=== PATIENT | female | born 1965 | race Asian ===

== ENCOUNTER → 2022-09-10 08:45 | Outpatient (BNVA) | payer OTHER, SELFPAY | PROVIDERS: Visit Provider Internal Medicine | DX: Z13.89 Encounter for screening for other disorder (principal) ==

== ENCOUNTER 2022-09-29 15:01 | Outpatient (REF) | payer OTHER, SELFPAY ==
--- NOTE | ~2022-09-29 | MR_ITS ---
EXAMINATION: MR ANKLE WITHOUT CONTRAST, RIGHT CLINICAL INFORMATION: Pain in right ankle COMPARISON: None. TECHNIQUE: MRI of the right ankle performed without contrast in a high field MRI scanner. FINDINGS: SUBCUTANEOUS SOFT TISSUES: Minimal generalized edema circumferentially about the ankle. MUSCLES/TENDONS: Normal. PLANTAR FASCIA: Normal. NEUROVASCULAR STRUCTURES/TARSAL TUNNEL: Normal. LIGAMENTS: Normal. BONE/CARTILAGE: There is ill-defined and generalized bone marrow edema noted throughout talar dome and extending into the talar neck. No fracture line. Articular cartilage of the talocrural joint is normal. Subtalar joints are normal. Talonavicular joint are normal. Remaining bone and joints are unremarkable. MR/MR ankle RT wo con IMPRESSION: 1. Bone marrow edema pattern in the talar dome and neck compatible with bone contusion or stress reaction. No fracture line detected. 2. Mild generalized edema in the subcutaneous soft tissues.
== END 2022-09-29 15:02 | disposition home or self-care (01) ==
LOC: HO.MRI 15:01
PROVIDERS: PCP Internal Medicine; Visit Provider Internal Medicine
DX: M25.571 Pain in right ankle and joints of right foot (principal)
CPT/HCPCS: 73721

== ENCOUNTER 2022-10-19 07:34 | Outpatient (REF) | payer OTHER, SELFPAY ==
[2022-10-19 07:45] LABS: MANUAL DIFF FLAG NO
[2022-10-19 07:58] LABS: Basophils Percent Auto 0.5 % (0-2); Eosinophils Absolute Auto 0.1 X10*3/uL (0.0-0.4); Eosinophils Percent Auto 1.6 % (0-4); Hematocrit 39.3 % (37.0-47.0); Hemoglobin 13.1 g/dl (12.0-16.0); Imm Gran Abs Auto 0.02 X10*3/uL (0.00-0.03); Imm Gran Pct Auto 0.3 % (0.0-0.4); Lymphocytes Percent Auto 31.9 % (20-40); Mean Corpuscular HGB Conc 33.3 g/dl (31.0-35.0); Mean Corpuscular Hemoglobin 30.5 pg (27.0-33.0); Mean Corpuscular Volume 91.6 fL (80.0-98.0); Mean Platelet Volume 11.8 fL (9.4-12.3); Monocytes Absolute Auto 0.7 X10*3/uL (0.1-1.2); Monocytes Percent Auto 10.4 % (2-11); Neutrophils Absolute Auto 3.5 x10*3/uL (2.0-8.3); Neutrophils Percent Auto 55.3 % (45-73); Platelet Count 199 X10*3/uL (160-400); Red Blood Count 4.29 X10*6/uL (4.20-5.50); Red Cell Distribution Width 12.5 % (11.0-16.0); White Blood Count 6.2 X10*3/uL (4.8-10.8)
[2022-10-19 08:27] LABS: Alanine Aminotransferase 19 U/L (0-31); Albumin Level 4.3 g/dL (3.5-5.0); Alkaline Phosphatase 57 U/L (39-117); Anion Gap 14 (12-20); Aspartate Amino Transferase 21 U/L (5-31); Bilirubin Total 0.8 mg/dL (0.0-1.0); Blood Urea Nitrogen 13 mg/dL (9-16); Calcium 9.4 mg/dL (8.4-10.2); Carbon Dioxide 28 mmol/L (22-29); Chloride 105 mmol/L (96-108); Cholesterol 170 mg/dL; Estimated Glomerular Filt Rate > 60; Glucose Random 91 mg/dL (60-115); HDL Cholesterol 72 mg/dL; LDL Cholesterol Calculated 79 mg/dl; Potassium 4.4 mmol/L (3.3-5.1); Sodium 143 mmol/L (135-145); Total Protein 6.7 g/dL (6.5-8.0); Triglycerides 95 mg/dL
[2022-10-19 08:44] LABS: Thyroid Stimulating Hormone 2.08 uIU/mL (0.32-4.0); Vitamin D 25-OH Total 45.2 ng/mL (>30)
== END 2022-10-19 07:35 | disposition home or self-care (01) ==
LOC: HO.LAB 07:34
PROVIDERS: PCP Internal Medicine; Visit Provider Internal Medicine
DX: Z00.00 Encounter for general adult medical examination without abnormal findings (principal); E55.9 Vitamin D deficiency, unspecified; E78.5 Hyperlipidemia, unspecified; M85.80 Other specified disorders of bone density and structure, unspecified site
CPT/HCPCS: 36415; 80053; 80061; 82306; 84443; 85025

== ENCOUNTER 2022-10-27 13:38 | Outpatient (REF) | payer OTHER, SELFPAY ==
--- NOTE | ~2022-10-27 | MM_ITS ---
EXAMINATION: BONE DENSITOMETRY CLINICAL INDICATION: Menopause. COMPARISON: This is the patient's baseline examination. TECHNIQUE: Using a [employer] DXA System (software version: 13.1) manufactured by [employer], dual-energy x-ray absorptiometry was performed of the lumbar spine and left hip. The images are of good technical quality. Summary results are attached. FINDINGS: AP SPINE L1-L4: BMD 0.872 g/cm2, Z-score -1.2, T-score -2.6, osteoporosis. LEFT FEMUR, NECK: BMD 0.760 g/cm2, Z-score -0.7, T-score -2.0, osteopenia. LEFT FEMUR, TOTAL: BMD 0.831 g/cm2, Z-score -0.4, T-score -1.4, osteopenia. IDENTIFIED RISK FACTORS: Menopause. HISTORY OF FRACTURE: None listed. MEDICATIONS: Calcium, vitamin D. MM/XR DEXA axial skeleton IMPRESSION: 1. DIAGNOSIS: Osteoporosis based on the lowest T-score value of -2.6 in the lumbar spine applying World Health Organization criteria. 2. 10-YEAR FRACTURE RISK PREDICTION, FRAX: According to the guidelines, FRAX calculation should only be performed on patients in the osteopenia bone density category. Therefore, FRAX was not performed on this patient. 3. Treatment Recommendations: NOF guidelines recommend consideration for treatment in postmenopausal women and men age 50 and older presenting with the following: -A hip or vertebral (clinical or morphometric) fracture. -T-score less than or equal to -2.5 at the femoral neck or spine after appropriate evaluation to exclude secondary causes. -Low bone mass at the hip or spine and a 10-year fracture probability by FRAX of greater than or equal to 3% for hip fracture or greater than or equal to 20% for major osteoporotic fracture based on the [place] adapted WHO algorithm. 4. Other Recommendations: All treatment decisions require clinical judgment and consideration of individual patient factors, including patient preferences, comorbidities, previous drug use, risk factors not captured in the FRAX model (e.g. frailty, falls, vitamin D deficiency, increased bone turnover, interval significant decline in bone density) and possible under or overestimation of fracture risk by FRAX. Additional medical evaluation for secondary cause of low bone mineral density may be appropriate. FUTURE SCAN RECOMMENDATION: People with diagnosed cases of osteoporosis or at high risk for fracture should have regular bone mineral density tests. For patients eligible for Medicare, routine testing is allowed once every 2 years. The testing frequency can be increased to one year for patients who have rapidly progressing disease, those who are receiving or discontinuing medical therapy to restore bone mass, or have additional risk factors.
[2022-10-27 16:56] LABS: Erythrocyte Sedimentation Rate 7 MM/HR (0-20)
[2022-10-27 17:18] LABS: C Reactive Protein < 0.04 mg/dL (< or = 0.50)
== END 2022-10-27 13:39 | disposition home or self-care (01) ==
LOC: HO.MAMMO 13:38
PROVIDERS: PCP Internal Medicine; Visit Provider Internal Medicine
DX: Z13.820 Encounter for screening for osteoporosis (principal); Z78.0 Asymptomatic menopausal state; M25.579 Pain in unspecified ankle and joints of unspecified foot
CPT/HCPCS: 36415; 77080; 85652; 86140

== ENCOUNTER 2022-11-09 16:25 | Outpatient (REF) | payer OTHER, SELFPAY ==
[2022-11-09 17:46] LABS: Phosphorus 4.6 mg/dL (2.7-4.5)
[2022-11-09 18:19] LABS: Vitamin B12 618 pg/mL (200-900)
[2022-11-10 19:43] LABS: PTHI 39 pg/mL (16-77)
== END 2022-11-09 16:26 | disposition home or self-care (01) ==
LOC: HO.LAB 16:25
PROVIDERS: PCP Internal Medicine; Visit Provider Internal Medicine
DX: G62.9 Polyneuropathy, unspecified (principal); M81.0 Age-related osteoporosis without current pathological fracture
CPT/HCPCS: 36415; 82607; 82746; 83970; 84100

== ENCOUNTER 2022-11-11 | Outpatient (REF) | payer OTHER, SELFPAY ==
[2022-11-19 06:09] LABS: N-Telopeptide 58 (see note); NTXCreaRU 67 mg/dL (20-275)
== END 2022-11-11 00:01 | disposition home or self-care (01) ==
LOC: HO.LNP
PROVIDERS: Visit Provider Internal Medicine
DX: M81.0 Age-related osteoporosis without current pathological fracture (principal)
CPT/HCPCS: 82523

== ENCOUNTER 2022-12-17 07:18 | Outpatient (REF) | payer OTHER, SELFPAY ==
--- NOTE | ~2022-12-17 | MR_ITS ---
EXAMINATION: MRI OF THE LEFT ANKLE WITHOUT CONTRAST CLINICAL INFORMATION: Pain in left ankle. COMPARISON: No prior imaging of the left ankle. MRI of the right ankle September 2022. TECHNIQUE: MRI of the left ankle without contrast on a high field MRI scanner. FINDINGS: Bone/cartilage: There is patchy bone marrow edema noted throughout the distal tibia, portions of the calcaneus, cuboid, portions of the talus. The articular surfaces are intact. Ligaments: Intact. 2. Neurovascular structures/tarsal tunnel: Normal. 3. Muscles/tendons: Normal. 4. Plantar fascia: Normal. 5. Subcutaneous soft tissues: Minimal edema noted along the medial lateral aspect of the ankle. MR/MR ankle LT wo con IMPRESSION: 1. Patchy bone marrow edema noted throughout the distal tibia, calcaneus, cuboid, and talus. This is nonspecific. This could be related to stress reaction or bone contusion. A similar pattern of bone marrow edema is noted in the right ankle MRI exam dated September 2022. 2. The pattern of bone marrow edema is nonspecific and can also be seen in the setting of complex regional pain syndrome.
== END 2022-12-17 07:19 | disposition home or self-care (01) ==
LOC: HO.MRI 07:18
PROVIDERS: PCP Internal Medicine; Visit Provider Internal Medicine
DX: M25.572 Pain in left ankle and joints of left foot (principal)
CPT/HCPCS: 73721

== ENCOUNTER 2023-02-22 13:24 | Outpatient (REF) | payer OTHER, SELFPAY | END 2023-02-22 13:25 | disposition home or self-care (01) | LOC: HO.MAMMO 13:24 | PROVIDERS: PCP Internal Medicine; Visit Provider Internal Medicine | DX: Z12.31 Encounter for screening mammogram for malignant neoplasm of breast (principal) | CPT/HCPCS: 77063; 77067 ==

== ENCOUNTER → 2023-02-22 13:30 | Outpatient (BNV) | payer OTHER, SELFPAY | PROVIDERS: PCP Internal Medicine; Visit Provider Radiology Diagnostic Radiology | DX: Z12.31 Encounter for screening mammogram for malignant neoplasm of breast (principal) | CPT/HCPCS: 77063; 77067 ==

== ENCOUNTER 2023-02-25 15:00 | Outpatient (RCR) | payer OTHER, SELFPAY | END 2023-03-18 07:27 | disposition home or self-care (01) | LOC: HO.PT 15:00 | PROVIDERS: PCP Internal Medicine; Visit Provider Internal Medicine | DX: M25.571 Pain in right ankle and joints of right foot (principal) | CPT/HCPCS: 97033; 97035; 97110; 97112; 97140; 97161; 97530 ==

== ENCOUNTER → 2023-03-12 14:38 | Outpatient (BNVA) | payer OTHER, SELFPAY | PROVIDERS: PCP Internal Medicine; Visit Provider Physician Assistant | DX: Z13.89 Encounter for screening for other disorder (principal) | CPT/HCPCS: 99204 ==

== ENCOUNTER 2023-08-05 13:24 | Outpatient (REF) | payer OTHER, SELFPAY ==
--- NOTE | ~2023-08-05 | XR_ITS ---
EXAMINATION: XR HAND, LEFT CLINICAL INFORMATION: Pain. COMPARISON: None available. TECHNIQUE: PA, lateral, and oblique views of the left hand. FINDINGS: Bony alignment and mineralization are normal. There is a relatively neutral ulnar variance. There is marked osteoarthritic change of the fifth distal interphalangeal joint, with a central erosion noted. There is some narrowing noted of the fourth and fifth distal interphalangeal joints and of the second, fourth and fifth proximal interphalangeal joints. There is slight peripheral osteophyte formation of the third proximal interphalangeal joint. No fracture or dislocation is seen. The proximal and distal carpal rows are intact. No focal soft tissue swelling, gas or foreign body is seen. XR/XR hand LT min 3V IMPRESSION: There are degenerative changes of the left hand, most pronounced of the second distal interphalangeal joint, which shows a central erosion. This raises the possibility of erosive osteomyelitis, psoriasis, Kaylan's syndrome or rheumatoid arthritis. Please correlate clinically. No fracture or dislocation is seen.
== END 2023-08-05 13:25 | disposition home or self-care (01) ==
LOC: HO.HOSX 13:24
PROVIDERS: Visit Provider Physician Assistant
DX: M79.642 Pain in left hand (principal); L72.0 Epidermal cyst
CPT/HCPCS: 73130

== ENCOUNTER 2023-08-05 14:33 | Outpatient (AMB) | payer OTHER, SELFPAY ==
--- NOTE | 2023-08-05 15:01 | MHC.OFFVIS ---
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 Patient reports lump has been present for about 3 weeks. Denies injury. She will have discomfort with applying pressure to lump. 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 She reports she has a lump on her left ring finger for about 2 weeks. She states she has no pain but she does c/o discomfort with applying pressure to the lump. [facility] History (Updated 08/05/23 @ 15:48 by Sherri Portillo PA-C) Hypercholesteremia Social History (Updated 08/05/23 @ 15:04 by Janelle Blue [facility]) Patient Tobacco Use Status: Never used Tobacco Review of Systems Const All systems reviewed & are unremarkable except as noted in HPI and below Physical Exam Vital Signs: BMI result Body Mass Index 21.9 Const General: cooperative, healthy appearing, comfortable, no acute distress, well developed and alert Orientation/consciousness: patient oriented x3 HEENT Head: Yes normal to inspection, Yes normocephalic and Yes atraumatic Eyes General: appearance normal, both eyes and all related structures Resp Effort & Inspection: normal respiratory effort and able to speak in complete sentences Cardio Rate: regular rate Peripheral pulses: Peripheral pulses 2+ throughout GI Palpation (GI): Soft to palpation Skin Lesions: no lesions Rashes: no rashes Neuro General: patient oriented x3 Extrem Other: Left ring finger: Normal to inspection. Full flexion and extension of the digits. She has a pea sized mobile nodule along the volar aspect of the middle phalanx which is not tender to palpation. No catching or locking of the digits. NVI. Assessment & Plan Assessment & Plan (1) Epidermoid cyst of finger of left hand: Code(s): L72.0 - Epidermal cyst Plan She did bring with her an US image of her finger that shows a pea sized cyst just above the flexor tendon. There is no association between the tendon and cyst. We discussed options which include modifications of activities and avoiding activities which may irritate the area vs aspiration which I think is too small, along with surgical intervention which she is not interested in as the cyst has been present for only 2 weeks. She will wait to proceed and look if the cyst increases in size and causes her concerns. If she returns for a surgical intervention, we will move forward with a excisional biopsy of the left ring finger cyst local anesthesia with Dr. Smiley. We discussed benefits and alternatives which include but are not limited to recurrence of cyst, infection, nerve & tissue damage to the surrounding structures and stiffness. She does understand all this and will contact us accordingly moving forward. Orders: Orders XR hand LT min 3V Today M79.642 - Pain in left hand Patient Instructions: Scribed for Sherri Portillo PA-C, by Paddy Gonzalez senior medical transcriptionist, on 08/05/2023 at 3:30 PM OSVALDO. Sherri Johnson PA-C, have personally reviewed and agree with the information entered by the scribe. Coding Level of Care Code New Pt Level 4 (08236) Diagnoses Epidermoid cyst of finger of left hand L72.0
[2023-08-05 15:02] VITALS: BMI 21.9
== END 2023-08-05 15:30 | disposition home or self-care (01) ==
PROVIDERS: PCP Internal Medicine; Visit Provider Physician Assistant
DX: L72.0 Epidermal cyst (principal)
CPT/HCPCS: 99203

== ENCOUNTER 2023-11-12 09:12 | Outpatient (REF) | payer OTHER, SELFPAY ==
[2023-11-12 10:05] LABS: Cholesterol 184 mg/dL (<200); HDL Cholesterol 76 mg/dL (>40); LDL Cholesterol Calculated 92 mg/dL (<100); Triglycerides 84 mg/dL (<150)
[2023-11-12 10:20] LABS: Vitamin D 25-OH Total 46.7 ng/mL (>30)
[2023-11-14 10:28] LABS: Anti Nuclear Antibody Screen NEGATIVE (NEGATIVE)
[2023-11-17 12:48] LABS: Collagen Type I C-Telopeptide 93 pg/mL (see note)
== END 2023-11-12 09:13 | disposition home or self-care (01) ==
LOC: HO.LAB 09:12
PROVIDERS: PCP Internal Medicine; Visit Provider Internal Medicine
DX: R31.29 Other microscopic hematuria (principal)
CPT/HCPCS: 36415; 80061; 82306; 82523; 86038

== ENCOUNTER 2023-12-16 15:51 | Outpatient (REF) | payer OTHER, SELFPAY ==
--- NOTE | ~2023-12-16 | MR_ITS ---
EXAMINATION: MR ANKLE WITHOUT CONTRAST, RIGHT CLINICAL INFORMATION: Right ankle pain and swelling. Osteoporosis without pathologic fracture. COMPARISON: Right ankle MRI dated 09/29/2022. TECHNIQUE: MRI of the ankle was performed using routine sequences on a high-field scanner. FINDINGS: BONE AND ARTICULAR CARTILAGE: Resolution of previously seen talar marrow edema. No acute fracture or dislocation. The ankle mortise is maintained. Anterior articular cartilage loss at the posterior subtalar joint with minimal subchondral cystic change, new when compared to the prior examination. Otherwise, intact articular cartilage. No talar osteochondral lesion. ACHILLES TENDON: Intact. OTHER TENDONS: Intact. LIGAMENTS: No evidence of acute ligament injury. JOINT FLUID AND SOFT TISSUES: No significant joint effusion. No soft tissue mass or fluid collection. PLANTAR FASCIA: Intact. SINUS TARSI AND TARSAL TUNNEL: Patent. MR/MR ankle RT wo con IMPRESSION: 1. Resolution of previously seen talar marrow edema. No acute fracture or dislocation. 2. Mild posterior subtalar arthrosis, new when compared to the prior examination. 3. No evidence of acute ligament or tendon injury.
--- NOTE | ~2023-12-16 | MR_ITS ---
EXAMINATION: MR ANKLE WITHOUT CONTRAST, LEFT CLINICAL INFORMATION: Left ankle pain and swelling. Osteoporosis without current pathologic fracture. COMPARISON: Left ankle MRI dated 12/17/2022. TECHNIQUE: MRI of the ankle was performed using routine sequences on a high-field scanner. FINDINGS: BONE AND ARTICULAR CARTILAGE: Complete versus near-complete resolution of previously seen patchy marrow edema. Possible minimal persistence of marrow edema within the lateral aspect of the calcaneal body. No acute fracture or dislocation. Ankle mortise is maintained. Along the medial aspect of the talar dome, there is focal articular cartilage thinning with minimal underlying subchondral cystic change measuring 0.5 x 0.5 cm, new when compared to the prior examination. No evidence of fragmentation or instability. No concerning lytic or blastic osseous lesion. ACHILLES TENDON: Intact. OTHER TENDONS: Intact. LIGAMENTS: No evidence of acute ligament injury. JOINT FLUID AND SOFT TISSUES: Trace tibiotalar joint effusion. No abnormal soft tissue mass or fluid collection. PLANTAR FASCIA: Intact. SINUS TARSI AND TARSAL TUNNEL: Patent. MR/MR ankle LT wo con IMPRESSION: 1. Complete versus near-complete resolution of previously seen patchy marrow edema. Possible minimal persistence of marrow edema within the lateral aspect of the calcaneal body. No acute fracture or dislocation. 2. Focal osteochondral lesion at the medial aspect of the talar dome measuring up to 0.5 cm, new when compared to the prior examination. No evidence of fragmentation or instability. Trace tibiotalar joint effusion. 3. No acute ligament or tendon injury.
== END 2023-12-16 15:52 | disposition home or self-care (01) ==
LOC: HO.MRI 15:51
PROVIDERS: PCP Internal Medicine; Visit Provider Internal Medicine
DX: M81.0 Age-related osteoporosis without current pathological fracture (principal)
CPT/HCPCS: 73721

== ENCOUNTER 2023-12-23 | Outpatient (REF) | payer OTHER, SELFPAY ==
[2023-12-30 20:29] LABS: N-Telopeptide 14 (see note); NTXCreaRU 34 mg/dL (20-275)
== END 2023-12-23 00:01 | disposition home or self-care (01) ==
LOC: HO.LAB
PROVIDERS: Visit Provider Internal Medicine
DX: M81.0 Age-related osteoporosis without current pathological fracture (principal)
CPT/HCPCS: 82523

== ENCOUNTER → 2024-02-11 13:22 | Outpatient (BNVA) | payer OTHER, SELFPAY | PROVIDERS: PCP Internal Medicine | DX: Z13.89 Encounter for screening for other disorder (principal) | CPT/HCPCS: 84450; 84460; 86803; 87389 ==

== ENCOUNTER 2024-03-14 15:21 | Outpatient (REF) | payer OTHER, SELFPAY ==
--- NOTE | ~2024-03-14 | MM_ITS ---
EXAMINATION: MM SCREENING DIGITAL BREAST TOMOSYNTHESIS, BILATERAL CLINICAL INFORMATION: Screening. Asymptomatic. COMPARISON: Mammography: Comparison is made with available priors TECHNIQUE: Digital breast mammography with tomosynthesis is performed in both the craniocaudal and mediolateral oblique views along with computer-aided detection (CAD). FINDINGS: The breasts are heterogeneously dense, which may obscure small masses (ACR BI-RADS breast composition Category c). There are no significant masses, abnormal calcifications, or other abnormalities. MM/MM tomosynthesis screening BI IMPRESSION: No mammographic evidence of malignancy. ASSESSMENT: BI-RADS BI-RADS 1 - Negative RECOMMENDATION: Routine annual mammography screening. 1 year F/U This examination should not preclude the clinical evaluation of a suspicious palpable abnormality. This patient's information was entered into a reminder system with a target due date for their next mammogram. Electronically signed by: Susana Kelly DO 04/02/2024 09:14 AM EDT
== END 2024-03-14 15:22 | disposition home or self-care (01) ==
LOC: HO.MAMMO 15:21
PROVIDERS: PCP Internal Medicine; Visit Provider Internal Medicine
DX: Z12.31 Encounter for screening mammogram for malignant neoplasm of breast (principal)
CPT/HCPCS: 77063; 77067

== ENCOUNTER → 2024-03-14 15:30 | Outpatient (BNV) | payer OTHER, SELFPAY | PROVIDERS: PCP Internal Medicine; Visit Provider Internal Medicine | DX: Z12.31 Encounter for screening mammogram for malignant neoplasm of breast (principal) | CPT/HCPCS: 77063; 77067 ==

== ENCOUNTER 2024-10-31 08:05 | Outpatient (REF) | payer OTHER, SELFPAY ==
--- OUTSIDE RECORDS SUMMARY | 2024-10-31 08:19 | XMS_ITS | Continuity of Care Document ---
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 Role Phone Gibson Lee MD Primary Care Physician [id number] Date(s): 10/23/24 - 10/30/24 [facility] [address] [place], [place] [address] Encounter Diagnosis Routine general medical examination at health care facility(Discharge Diagnosis) - 10/23/24 Osteoarthritis(Discharge Diagnosis) - 10/23/24 Osteoporosis(Discharge Diagnosis) - 10/23/24 Vitamin D deficiency(Discharge Diagnosis) - 10/23/24 Attending Physician: Gibson Lee MD Encounter Type: Office Visit Allergies, Adverse Reactions, Alerts Substance Criticality Severity Reaction Reaction Severity Status ibuprofen gi upset Active naproxen gi upset Active atorvastatin myalgias Active Immunizations Given and Recorded Vaccine Date Status Refusal Reason influenza virus vaccine, inactivated 04/30/21 Jerry rded SARS-CoV-2 (COVID-19) mRNA BNT-162b2 vac 04/12/21 Recorded SARS-CoV-2 (COVID-19) mRNA BNT-162b2 vac 07/20/20 Recorded SARS-CoV-2 (COVID-19) mRNA BNT-162b2 vac 06/29/20 Recorded zoster vaccine, inactivated 01/21/21 Recorded zoster vaccine, inactivated 09/26/20 Recorded Measles/Mumps/Rubella Virus Vaccine 01/09/17 Recor ded tetanus/diphtheria/pertussis, acel(Tdap) 01/07/17 Recorded Medications acetaZOLAMIDE 125 mg oral tablet 125 mg, 1, tablet, By Mouth, 2 times a day, start the day before ascending to altitude, # 20 each, Refills 0, Tot. Refills 0, Maintenance, 10/18/24 12:25:00 PM EDT, Route to Pharmacy Electronically, [facility], Partial fill upon patient request if the prescription is for a schedule II opioid drug.,158.5, cm, 10/22/23 15:39:00 EDT, Height, 56.9, kg, 10/22/23 15:39:00 EDT, Dry Weight Start Date: 10/18/24 Status: Ordered Quantity: 20.0 Unit: each Repeat number: 1 CeleBREX 100 mg oral capsule 1 capsule = 100 mg, By Mouth, 2 times a day, PRN joint or muscle pain, # 60 capsule, 5 Refills, Maintenance, 10/23/24 3:45:00 PM EDT, Capsule, [facility], Partial fill upon patient request if the prescription is for a schedule II opioid drug., 158.5, cm, 10/23/24 15:23:00 EDT, Height, 56, kg, 10/23/24 15:23:00 EDT, Dry Weight Start Date: 10/23/24 Status: Ordered Quantity: 60.0 Unit: capsule Repeat number: 6 Fosamax 70 mg oral tablet 1 tablet = 70 mg, By Mouth, Every week, # 12 tablet, 3 Refills, Maintenance, 03/16/24 3:29:00 PM EDT,Tablet, [facility], Partial fill upon patient request if the prescription is for a schedule II opioid drug., 158.5, cm, 10/22/23 15:39:00 EDT, Height, 56.9, kg, 10/22/23 15:39:00 EDT, Dry Weight Start Date: 03/16/24 Status: Ordered Quantity: 12.0 Unit: tablet Repeat number: 4 rosuvastatin 5 mg oral tablet 1 tablet, By Mouth, Daily, # 90 tablet, 3 Refills, Maintenance, 08/03/23 10:43:00 AM EST, [facility], 158.5, cm, 10/14/22 15:23:00 EDT, Height Start Date: 08/03/23 Status: Ordered Quantity: 90.0 Unit: tablet Repeat number: 1 Vitamin D2 50,000 intl units (1.25 mg) oral capsule 1 capsule, By Mouth, Every week, # 12 capsule, 3 Refills, Maintenance, 12/29/23 7:43:00 AM EDT, [facility], 158.5, cm, 10/22/23 15:39:00 EDT, Height, 56.9, kg, 10/22/23 15:39:00 EDT, Dry Weight Start Date: 12/29/23 Status: Ordered Quantity: 12.0 Unit: capsule Repeat number: 1 Vitamin D3 1000 intl units oral tablet 1 tablet = 25 mcg, By Mouth, Daily, # 30 tablet, 0 Refills, Maintenance, 10/22/23 4:10:00 PM EDT, Tablet, Partial fill upon patient request if the prescription is for a schedule II opioid drug. Start Date: 10/22/23 Status: Ordered Quantity: 30.0 Unit: tablet Repeat number: 1 Problem List Condition Confirmation Course Effective Dates Status H ealth Status Informant Hyperlipidemia Confirmed Active Microscopic hematuria Confirmed Active Osteoarthritis Confirmed Active Osteoporosis Confirmed Active Peroneal tendonitis Confirmed Active Plantar fasciitis, bilateral Confirmed Active Post-menopausal Confirmed Active Vitamin D deficiency Confirmed Active Diagnosis Diagnosis Type Effective Dates Health Status Clinical Service Informant Routine general medical examination at health care facility Discharge Diagnosis 10/23/24 Osteoarthritis Discharge Diagnosis 10/23/24 Osteoporosis Discharge Diagnosis 10/23/24 Vitamin D deficiency Discharge Diagnosis 10/23/24 Vital Signs Most recent to oldest [Reference Range]: 1 Height 158.5 cm (10/23/24 3:23 PM) Weight 56 kg (10/23/24 3:23 PM) Oxygen Saturation [94-100 %] 98 % (10/23/24 3:23 PM) Pulse Rate [55-90 bpm] 70 bpm (10/23/24 3:23 PM) Body Mass Index [18.5-24.99 kg/m2] 22.29 kg/m2 (10/23/24 3:23 PM) Blood Pressure [90-138/55-84 mm Hg] 117/ 75mm Hg (10/23/24 3:23 PM) Mode of Delivery (Oxygen) Room air (10/23/24 3:23 PM) Blood pressure sites Arm, right (10/23/24 3:23 PM) Dry Weight 56 kg (10/23/24 3:23 PM) Weight Obtained Via Standing scale (10/23/24 3:23 PM) Dry Weight Obtained Via Standing scale (10/23/24 3:23 PM) Social History Social History Type Response Smoking Status Never (less than 100 in lifetime) entered on: 09/09/18 Sex Sex Representation Female (finding) Patient Care team information Care Team Personnel Name: Gibson Lee MD Position: S Physician - Primary Care Member Role: PCP Address: [address] [place] [address] [facility] [address] Telecom: Care Team Related Persons Name: LOLA GLOVER Insurance Providers Guarantor name: CA[employer]N [employer] Health Plan Information #: 1 Payer: [employer] Member Number: [id number] Policy Number: NA Group Number: [id number] Health Plan Information #: 2 Payer: [employer] Member Number: [id number] Policy Number: NA Group Number: [id number]
[2024-10-31 08:20] LABS: MANUAL DIFF FLAG NO
[2024-10-31 09:03] LABS: Basophils Percent Auto 0.6 % (0-2); Eosinophils Absolute Auto 0.1 X10*3/uL (0.0-0.4); Eosinophils Percent Auto 1.1 % (0-4); Hematocrit 41.4 % (37.0-47.0); Imm Gran Abs Auto 0.01 X10*3/uL (0.00-0.03); Imm Gran Pct Auto 0.2 % (0.0-0.4); Lymphocytes Absolute Auto 1.7 X10*3/uL (1.2-4.9); Mean Corpuscular HGB Conc 33.8 g/dl (31.0-35.0); Mean Corpuscular Hemoglobin 30.6 pg (27.0-33.0); Mean Corpuscular Volume 90.4 fL (80.0-98.0); Mean Platelet Volume 11.7 fL (9.4-12.3); Monocytes Absolute Auto 0.5 X10*3/uL (0.1-1.2); Monocytes Percent Auto 7.7 % (2-11); Neutrophils Absolute Auto 4.1 x10*3/uL (2.0-8.3); Neutrophils Percent Auto 64.4 % (45-73); Platelet Count 211 X10*3/uL (160-400); Red Blood Count 4.58 X10*6/uL (4.20-5.50); Red Cell Distribution Width 12.7 % (11.0-16.0); White Blood Count 6.4 X10*3/uL (4.8-10.8)
[2024-10-31 09:12] LABS: Estimated Average Glucose 120 mg/dL; Hemoglobin A1C 145.6137 umol/L; Hemoglobin A1c % 5.8 % (<6.0); Total Hemoglobin (HGBA1C) 3698.9482 umol/L
[2024-10-31 10:02] LABS: Alanine Aminotransferase 21 U/L (0-31); Albumin Level 4.8 g/dL (3.5-5.0); Alkaline Phosphatase 41 U/L (39-117); Anion Gap 12 (12-20); Aspartate Amino Transferase 26 U/L (5-31); Bilirubin Total 0.7 mg/dL (0.0-1.0); Blood Urea Nitrogen 13 mg/dL (9-16); Calcium 9.3 mg/dL (8.4-10.2); Carbon Dioxide 27 mmol/L (22-29); Chloride 105 mmol/L (96-108); Cholesterol 174 mg/dL (<200); Estimated Glomerular Filt Rate > 60; Glucose Random 98 mg/dL (60-115); HDL Cholesterol 72 mg/dL (>40); LDL Cholesterol Calculated 77 mg/dL (<100); Potassium 4.3 mmol/L (3.3-5.1); Sodium 140 mmol/L (135-145); Total Protein 7.7 g/dL (6.5-8.0); Triglycerides 126 mg/dL (<150); Vitamin D 25-OH Total 30.2 ng/mL (>30)
[2024-11-03 21:33] LABS: Collagen Type I C-Telopeptide 130 pg/mL (see note)
== END 2024-10-31 08:06 | disposition home or self-care (01) ==
LOC: HO.LAB 08:05
PROVIDERS: PCP Internal Medicine; Visit Provider Internal Medicine
DX: Z00.00 Encounter for general adult medical examination without abnormal findings (principal); Z13.1 Encounter for screening for diabetes mellitus; Z13.6 Encounter for screening for cardiovascular disorders
CPT/HCPCS: 36415; 80053; 80061; 82306; 82523; 83036; 85025

== ENCOUNTER 2024-12-21 14:28 | Outpatient (REF) | payer OTHER, SELFPAY ==
--- NOTE | ~2024-12-21 | MM_ITS ---
EXAMINATION: DXA BONE DENSITY AXIAL HISTORY: M81.0 TECHNIQUE: [email or web address] Dual energy absorptiometry (DEXA) of the lumbar spine, total left hip, and femoral neck was performed. COMPARISON: Comparison is made with the prior examination dated 10/27/2022. FINDINGS: The bone mineral density of the lumbar spine is 0.929, corresponding to a T-score of -2.1, and a Z-score of -0.6. This is indicative of osteopenia. This represents a BMD change of 6.5% compared to the prior exam. This is statistically significant. The bone mineral density of the left total hip is 0.862, corresponding to a T-score of -1.2, and a Z-score of 0.0. This is indicative of osteopenia. This represents a BMD change of 3.9% compared to the prior exam. This is not statistically significant. The bone mineral density of the left femoral neck is 0.812, corresponding to a T-score of -1.6, and a Z-score of -0.2. This is indicative of osteopenia. This represents a BMD change of 6.8% compared to the prior exam. MM/XR DEXA axial skeleton IMPRESSION: Based on bone mineral density, and according to World Health Organization (WHO) criteria, the diagnosis is consistent with osteopenia. All bone density values are in grams per centimeter squared (g/cm2). Statistically, 68% of repeat scans fall within 1 SD (+/- 0.010 g/cm2 for AP spine L1-L4) and 1 SD (+/- 0.012 g/cm2 for femur total) FRAX is a trademark of the [employer] [facility] [employer], a World Health Organization (WHO) Collaborating Center. Electronically signed by: Karthikeyan Barry MD 12/21/2024 03:12 PM EDT
== END 2024-12-21 14:29 | disposition home or self-care (01) ==
LOC: HO.MAMMO 14:28
PROVIDERS: PCP Internal Medicine; Visit Provider Internal Medicine
DX: M81.0 Age-related osteoporosis without current pathological fracture (principal)
CPT/HCPCS: 77080

== ENCOUNTER → 2024-12-21 14:30 | Outpatient (BNV) | payer OTHER, SELFPAY | PROVIDERS: PCP Internal Medicine; Visit Provider Radiology Diagnostic Radiology | DX: E28.39 Other primary ovarian failure (principal) | CPT/HCPCS: 77080 ==

== ENCOUNTER 2025-03-21 14:58 | Outpatient (REF) | payer OTHER, SELFPAY | END 2025-03-21 14:59 | disposition home or self-care (01) | LOC: HO.MAMMO 14:58 | PROVIDERS: PCP Internal Medicine; Referring Provider Obstetrics & Gynecology; Visit Provider Internal Medicine | DX: Z12.31 Encounter for screening mammogram for malignant neoplasm of breast (principal) | CPT/HCPCS: 77063; 77067 ==

== ENCOUNTER → 2025-03-21 15:30 | Outpatient (BNV) | payer OTHER, SELFPAY | PROVIDERS: PCP Internal Medicine; Referring Provider Obstetrics & Gynecology; Visit Provider Internal Medicine | DX: Z12.31 Encounter for screening mammogram for malignant neoplasm of breast (principal) | CPT/HCPCS: 77063; 77067 ==

== ENCOUNTER 2025-05-01 06:54 | Day surgery (SDC) | payer OTHER, SELFPAY ==
[2025-04-27 11:05] VITALS: BMI 22.3
[2025-05-01] MEDS: Lactated Ringers 1,000 ML 100 ML IVCONT (07:13)
[2025-05-01 07:16] VITALS: BP 130/63; PULSE 69; RESP 16; TEMP 36.8; O2SAT 98
--- NOTE | 2025-05-01 07:16 | HO.ANESPROP2 ---
Documented by User: Hanna Pathak NP 04/30/25 09:00 HPI - Anesthesia Eval Consult details Narrative: 60 yr old female for colonoscopy PMF Active Problems Active Problems: All Active Problems (Updated 04/27/25 @ 10:58 by Sarah Collins RN) Epidermoid cyst of finger of left hand (Acute) Pain in left ankle (Acute) Pain in right ankle (Acute) Hypercholesteremia (Acute) Past Medical History Medical History Plantar fasciitis, bilateral Osteoporosis Osteoarthritis Hypercholesteremia Surgical History Surgical History Surgical history unknown Social History Social History (Updated 08/05/23 @ 15:04 by TON Plunkett) Patient Tobacco Use Status: Never used Tobacco Have you been hit, kicked, punched, or otherwise hurt by someone within the past year? If so, by whom?: No Are you DNR?: No Advance Directives: No Advance Directives Information Provided: Yes Meds Allergies Allergy/AdvReac Type Severity Reaction Status Date / Time atorvastatin AdvReac Intermediate myalgias Verified 04/27/25 11:00 ibuprofen AdvReac Intermediate Gastrointestinal Verified 04/27/25 11:00 Upset naproxen AdvReac Intermediate Gastrointestinal Verified 04/27/25 11:00 Upset Home Medications ?Medication ?Instructions ?Recorded ?Confirmed ?Last Taken ?Type rosuvastatin 5 mg tablet (Crestor) 5 mg PO DAILY 09/10/22 05/01/25 Unknown History alendronate 70 mg tablet 70 mg PO QWEEK 08/05/23 05/01/25 Unknown History ergocalciferol (vitamin D2) 1,250 1,250 mcg PO QWEEK 08/05/23 05/01/25 Unknown History mcg (50,000 unit) capsule (Vitamin D2) cholecalciferol (vitamin D3) 25 25 mcg PO DAILY 04/27/25 05/01/25 Unknown History mcg (1,000 unit) capsule (Vitamin D3) Exam Height,Weight and Vital Signs: Height 5 ft 2.4 in Weight 56 kg Documented by User: Ofelia Morales DO 05/01/25 07:18 [facility] Past Medical History Medical History Plantar fasciitis, bilateral Osteoporosis Osteoarthritis Hypercholesteremia Family History Family history of problems with anesthesia: No Surgical History Surgical History Surgical history unknown History of Problems with Anesthesia: No Social History Social History (Updated 08/05/23 @ 15:04 by Janelle Blue [facility]) Patient Tobacco Use Status: Never used Tobacco Have you been hit, kicked, punched, or otherwise hurt by someone within the past year? If so, by whom?: No Are you DNR?: No Advance Directives: No Advance Directives Information Provided: Yes Meds Allergies Allergy/AdvReac Type Severity Reaction Status Date / Time atorvastatin AdvReac Intermediate myalgias Verified 04/27/25 11:00 ibuprofen AdvReac Intermediate Gastrointestinal Verified 04/27/25 11:00 Upset naproxen AdvReac Intermediate Gastrointestinal Verified 04/27/25 11:00 Upset Home Medications ?Medication ?Instructions ?Recorded ?Confirmed ?Last Taken ?Type rosuvastatin 5 mg tablet (Crestor) 5 mg PO DAILY 09/10/22 05/01/25 Unknown History alendronate 70 mg tablet 70 mg PO QWEEK 08/05/23 05/01/25 Unknown History ergocalciferol (vitamin D2) 1,250 1,250 mcg PO QWEEK 08/05/23 05/01/25 Unknown History mcg (50,000 unit) capsule (Vitamin D2) cholecalciferol (vitamin D3) 25 25 mcg PO DAILY 04/27/25 05/01/25 Unknown History mcg (1,000 unit) capsule (Vitamin D3) Exam Exam Date and Time: 05/01/25 0715 Airway Mallampati Class: I TM Dist: >3cm Neck ROM: Full Loose/Missing/Broken Teeth: No (patient denies any loose or broken teeth) Heart: S1S2 Lungs: CTAB Assessment and Plan Assessment Anesthesia Assessment: Anesthesia Plan Discussed and Chart Reviewed Final Anesthetic Review Family History of Problems with Anesthesia: No History of Problems with Anesthesia: No NPO: Yes ASA Class: II Final Preanesthetic Review: No Changes in Pt Med Stat, Meds/Allgs Chart Reviewed, Consent Obtained/Reviewed and Anes Risks/Benef Reviewed Patient Risk: Low Procedure Risk: Low Anesthetic Plan Anesthetic Plan: MAC: and Agree w/ Assess. and Plan Disposition: Standard PACU
--- NOTE | 2025-05-01 07:36 | MHC.SHP ---
Pre-Procedural Eval Section A - 24 Hr Update-Section A only Date of Service: 05/01/25 Section B - Complete if H&P > 30 days Chief Complaint: screening Details of Present Illness: 60 y.o F here for CRC screening. Fam hx of CRC in mom in her 80s. No fam hx of IBD. No rectal bleeding or chronic diarrhea. Present Medications: see Short Stay Collaborative assessment History of Previous Operations: No relevant previous surgery Allergies: Allergies Allergy/AdvReac Type Severity Reaction Status Date / Time atorvastatin AdvReac Intermediate myalgias Verified 04/27/25 11:00 ibuprofen AdvReac Intermediate Gastrointestinal Verified 04/27/25 11:00 Upset naproxen AdvReac Intermediate Gastrointestinal Verified 04/27/25 11:00 Upset Review of Systems Review of Systems Comment: 10 point ROS negative Exam Surgical H&P Exam: Normal: HEENT, Normal: Heart, Normal: Lungs, Normal: Extremities, Normal: Abdomen, Normal: Skin and Normal: Neurological Plan Diagnosis/Plan: Unchanged I have reviewed the history and physical and performed a pertinent physical examination on my patient. No changes have occurred unless specified. Time Spent With Patient Time: Total time managing care of this patient today ____ minutes.
--- NOTE | 2025-05-01 07:37 | P.OPN-COLO_ITS ---
Colonoscopy Operative Note Operative Note Date of Service: 05/01/25 Narrative: Procedure: Colonoscopy Indication: Screening, fam hx of CRC Endoscopist: Lila Davila MD Anesthesia Provider: Dr Ofelia Morales Anesthesia type: MAC Instrument: Olympus [id number]-[id number] Consent: Indication, risks vs benefits, and alternatives were discussed with the patient who gave written informed consent to proceed. EKG, pulse, pulse oximetry and blood pressure were monitored throughout the procedure. Please see anesthesia flowsheet. Procedure: The patient was brought to the procedure room and placed in the left lateral decubitus position. IV medications were administered by the anesthesia provider in attendance. A digital rectal exam was performed which was normal. A distal attachment cap was affixed to the tip of the colonoscope which was then inserted through the anus and advanced through the colon to the cecum at 75 cm,and terminal ileum. Appendiceal orifice and ileocecal valve were identified. Mucosa was carefully examined under high definition white light as the instrument was slowly withdrawn in a retrograde panoramic fashion. Retroflexion was performed in rectum. The procedure was not difficult. There were no immediate obvious complications. The quality of the prep was BBPS: 3+3+3 = adequate Withdrawal time 7 minutes. Limitations: No limitations. Findings: Mucosa: Normal to cecum and terminal ileum. Protruding lesions: * Medium internal hemorrhoids without stigmata of recent bleeding. Impression: 1. Normal colon and terminal ileum mucosa 2. Internal hemorrhoids Recommendations: - Repeat colonoscopy for asymptomatic colorectal ca screening in 10 years (FDR was diagnosed with CRC at age >60 so average screening intervals apply).
[2025-05-01 07:57] VITALS: BP 98/52; PULSE 73; RESP 20; TEMP 36.4; O2SAT 96
[2025-05-01 08:10] VITALS: BP 100/64; PULSE 65; RESP 16; O2SAT 98
== END 2025-05-01 08:57 | disposition home or self-care (01) ==
PROVIDERS: PCP Internal Medicine; Visit Provider Internal Medicine
PROC: 0DJD8ZZ Inspection of Lower Intestinal Tract, Via Natural or Artificial Opening Endoscopic (ICD-10-PCS; CPT 45378; principal; 2025-05-01 07:30)
DX: Z12.11 Encounter for screening for malignant neoplasm of colon (principal); Z80.0 Family history of malignant neoplasm of digestive organs; K64.8 Other hemorrhoids
CPT/HCPCS: 45378; J2003; J2704

== ENCOUNTER → 2025-05-01 06:54 | Outpatient (BNV) | payer OTHER, SELFPAY | PROVIDERS: PCP Internal Medicine; Visit Provider Internal Medicine | DX: Z12.11 Encounter for screening for malignant neoplasm of colon (principal); Z80.0 Family history of malignant neoplasm of digestive organs; K64.8 Other hemorrhoids | CPT/HCPCS: 45378 ==